=== PATIENT | male | born 1965 | race Two or more races ===

== ENCOUNTER 2017-05-14 16:11 | Emergency (ER) | payer SELFPAY ==
[~2017-05-14] VITALS: Ht 180.3 cm; Wt 95.2 kg
[2017-05-14 16:25] VITALS: Ht 180.3 cm; Wt 95.2 kg
[2017-05-14 17:36] VITALS: BP 126/80
== END 2017-05-14 17:36 | disposition home or self-care (01) ==
LOC: ED 16:11
DX: S16.1XXA Strain of muscle, fascia and tendon at neck level, initial encounter (principal); S20.219A Contusion of unspecified front wall of thorax, initial encounter; I10 Essential (primary) hypertension; Z88.0 Allergy status to penicillin; V89.2XXA Person injured in unspecified motor-vehicle accident, traffic, initial encounter; Y93.73 Activity, racquet and hand sports; Y92.89 Other specified places as the place of occurrence of the external cause; Y99.8 Other external cause status